=== PATIENT | male | born 2000 | race Caucasian/White ===

== ENCOUNTER 2021-01-03 22:35 | Emergency (ER) | payer MEDICAID ==
[~2021-01-03] VITALS: Ht 172.7 cm; Wt 59.7 kg
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
[2021-01-03] MEDS ORDERED: LIDOCAINE-MPF 1%, 5ML INFIL ONE (23:30)
[2021-01-03] MEDS ORDERED: LIDOCAINE-MPF 1%, 5ML ONE (23:51)
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
--- NOTE | 2021-01-04 00:51 | NUR ---
BREAK RN: MARY SKINNER AT BEDSIDE.
[2021-01-04] MEDS ORDERED: CEPHALEXIN 500 MG CAPSULE ONE (02:19)
[2021-01-04] MEDS ORDERED: CEPHALEXIN 500 MG CAPSULE PO ONE (02:30)
[2021-01-04 02:46] VITALS: BP 125/62
[2021-01-04] MEDS ORDERED: PLEASE ENTER ALLERGIES MC SCH (03:00)
== END 2021-01-04 02:54 | disposition home or self-care (01) ==
LOC: ED 23:59
DX: S68.115A Complete traumatic metacarpophalangeal amputation of left ring finger, initial encounter (principal); Y04.0XXA Assault by unarmed brawl or fight, initial encounter; Y93.89 Activity, other specified; Y92.89 Other specified places as the place of occurrence of the external cause; Y99.8 Other external cause status
CPT/HCPCS: 12001; 26952; 99284